=== PATIENT | male | born 2000 | race Caucasian/White ===

== ENCOUNTER 2020-08-28 03:12 | Emergency (ER) | payer OTHER ==
[~2020-08-28 03:12] MED LIST: CARBATROL100 MG PO; CLONIDINE0.1 MG; LUVOX100 MG PO; ORAP1 MG PO; ORAP2 MG PO
== END 2020-08-28 04:52 | disposition left against medical advice (07) ==
LOC: ED 03:12
DX: T14.90XA Injury, unspecified, initial encounter (principal); Z53.21 Procedure and treatment not carried out due to patient leaving prior to being seen by health care provider; X58.XXXA Exposure to other specified factors, initial encounter; Y93.89 Activity, other specified; Y92.89 Other specified places as the place of occurrence of the external cause; Y99.8 Other external cause status

== ENCOUNTER → 2023-12-05 | Outpatient (CLI) | payer OTHER | END | disposition home or self-care (01) | LOC: RAD 13:08 | PROVIDERS: ATTEND Internal Medicine Nephrology | DX: M16.12 Unilateral primary osteoarthritis, left hip (principal); M25.852 Other specified joint disorders, left hip ==